=== PATIENT | female | born 1970 | race American Indian/Alaskan Native ===

== ENCOUNTER 2018-10-16 06:24 | Day surgery (SDC) | payer BC ==
--- NOTE | 2018-10-16 07:36 | Anesthesia Consultation ---
Anesthesia Consult and Med Hx Date of service: 10/16/18 - Airway Anesthetic Teeth Evaluation: Good ROM Head & Neck: Adequate Mental/Hyoid Distance: Adequate Mallampati Class: Class III - Pre-Operative Health Status ASA Pre-Surgery Classification: ASA3 Proposed Anesthetic Plan: MAC - Cardiovascular System Hx Hypertension: Yes - Central Nervous System Hx Psychiatric Problems: Yes (depression/anxiety) - Endocrine Hx Insulin Dependent Diabetes: Yes - Hematic Hx Anemia: Yes - Other Systems Hx Obesity: Yes (Morbid obesity, BMI 42.4) - Additional Comments Anesthesia Medical History Comments: S/p gastric bypass (2008)
--- NOTE | 2018-10-16 07:36 | Anesthesia Day of Surgery ---
Anesthesia Day of Surgery - Day of Surgery Patient Examined: Yes Patient H&P Reviewed: Yes Patient is NPO: Yes Beta Blockers: Yes
[2018-10-16] MEDS ORDERED: WATER FOR IRRIG STERILE IR ONE (07:44)
[2018-10-16] MEDS ORDERED: WATER FOR IRRIG STERILE ONE (07:44)
[2018-10-16] MEDS ORDERED: NACL 0.9% 1000 ML 1,000 ML IV SCH (08:00)
[2018-10-16] MEDS ORDERED: VERSED ONE (09:21)
[2018-10-16] MEDS ORDERED: XYLOCAINE 1% 20 mL ONE (09:21)
[2018-10-16] MEDS ORDERED: DIPRIVAN 10 MG/ML IV ONE (09:21)
[2018-10-16] MEDS ORDERED: D50W (25GM) Syringe IV ONE (09:33)
--- NOTE | 2018-10-16 10:11 | Procedure Note ---
Date of procedure: 10/16/18 Pre-op diagnosis: Diarrhea/ Colitis Post-op diagnosis: other (R/O Microscopic Colitis/ R/O Ileitis/ Solitary,small Rectal Polyp/ Minor, Internal Hemorhoid/ Prep was fair to poor) Procedure: Colonoscopy with Biopsy Anesthesia: MAC Surgeon: STANTON CASTANO Estimated blood loss: minimal Pathology: list Specimen disposition: to lab Condition: stable Disposition: same day (Avoid aspirin and NSAID for 4 to 5 days. Treat prn Imodium AD (OTC) as needed for diarrhea and an empiric course of Flagyl)
[2018-10-16 10:28] VITALS: BP 149/80
--- NOTE | 2018-10-16 12:47 | Operative Report ---
PROCEDURE: Colonoscopy. INDICATIONS: This is a 48-year-old -[place] female with a history of obesity, underlying history of diabetes mellitus type 2, hypertension, and family history of colon cancer. The patient lately has been having abdominal pain with changes in bowel habit and diarrhea. Colonoscopy was done to assess for any associated colitis. DESCRIPTION OF PROCEDURE: Procedure was done after getting informed consent with MAC anesthesia. Initial rectal exam was unremarkable. Instrument was passed through the rectum onto the cecum, which was identified with ileocecal valve and the appendiceal orifice. Visualization was fair to slightly poor. The mucosa was washed with copious amounts of water. The terminal ileum was intubated showed normal mucosa. Biopsy was done to rule out for possible ileitis. Cecum, ascending colon, transverse colon, descending colon, and sigmoid likewise showed normal mucosa. Random biopsies were done to rule out for possible microscopic colitis and the rectum showed small 8 mm ____ polyp that was removed by cold biopsy. There was minimal bleeding from the biopsy sites and the rectum showed some minor internal hemorrhoids on the retroverted view. There were no complications associated with the procedure. Minimal bleeding associated with the procedure. ASSESSMENT: Changes in bowel habits, diarrhea, rule out microscopic colitis, rule out ileitis, solitary small rectal polyp removed by cold biopsy, minor internal hemorrhoids. PLAN: To treat the patient empirically with Flagyl, Lomotil on a p.r.n. basis and probiotics. The patient avoid aspirin and aspirin-related products for the next few days and follow up in the office in 1-2 weeks' time and Sloane Carnes was in the room throughout the entirety of the procedure. JOB# [id number] ENMANUEL/ERWIN
== END 2018-10-16 11:20 | disposition home or self-care (01) ==
LOC: GIO 06:24
DX: K63.5 Polyp of colon (principal); K64.8 Other hemorrhoids; R19.7 Diarrhea, unspecified; I10 Essential (primary) hypertension; E11.42 Type 2 diabetes mellitus with diabetic polyneuropathy; D64.9 Anemia, unspecified; E66.01 Morbid (severe) obesity due to excess calories; Z68.41 Body mass index [BMI] 40.0-44.9, adult; Z79.899 Other long term (current) drug therapy; Z79.4 Long term (current) use of insulin; Z98.84 Bariatric surgery status; Z80.0 Family history of malignant neoplasm of digestive organs
CPT/HCPCS: 45380; 81025; 82962; 88305; J2250; J2704; J7030

== ENCOUNTER 2020-07-14 06:31 | Day surgery (SDC) | payer BC ==
[2020-07-14] MEDS ORDERED: SODIUM CHLORIDE 0.9% 1000 ML 1,000 ML IV SCH (07:00)
[2020-07-14] MEDS ORDERED: WATER FOR IRRIG STERILE 250 ML BOTTLE IR ONE (07:39)
[2020-07-14] MEDS ORDERED: propofoL 200 MG/20 ML VIAL IV ONE (09:37)
--- NOTE | 2020-07-14 10:01 | Procedure Note ---
Date of procedure: 07/14/20 Pre-op diagnosis: GERD and possible Peptic Ulcer disease Post-op diagnosis: other (S/P Gastric Bypass (Bilroth 2)/ No Peptic,Ulcer Disease noted/Gastritis/Mild to Moderate Erosive Esophagitis/R/O Celiac disease/ R/O Eosinophilic Esophagitis) Procedure: EGD with Biopsy Anesthesia: [facility] [place] Surgeon: STANTON CASTANO Estimated blood loss: minimal Pathology: list Specimen disposition: to lab Condition: stable Disposition: same day (Treat with PPI and Reglan. Avoid aspirin and NSAIID for 5 days; otherwise resume home medication and follow up in 1 to 2 weeks ([phone]).)
--- NOTE | 2020-07-14 10:12 | Operative Report ---
PROCEDURE: Esophagogastroduodenoscopy with biopsy. INDICATIONS: This is a 50-year-old -[place] female who is obese, has an underlying history of diabetes mellitus who has been complaining of GERD symptoms and possible peptic ulcer disease. EGD was done for further assessment of her symptoms. DESCRIPTION OF PROCEDURE: The procedure was done after getting informed consent with MAC anesthesia. Instrument was passed through the hypopharynx into the esophagus, which showed [id number] erosive esophagitis. Photo documentation and biopsy was done from the distal esophagus, as well as from the midesophagus. The stomach showed some gastritis. There was status post gastric bypass. It looked like the patient had Billroth II. The biopsy was done from the remnant of the gastric portion for H. pylori and atrophic gastritis. Biopsy was done from the efferent limb to rule out for possible celiac disease. There was minimal bleeding associated with the procedure. No complications associated with the procedure. ASSESSMENT: Gastroesophageal reflux disease symptoms, [id number] erosive esophagitis, gastritis, status post gastric bypass with a Billroth II, rule out celiac disease. PLAN: To treat the patient with PPI, p.r.n. dose of Reglan. Have the patient avoid aspirin and aspirin-related products for the next few days and follow up in the office in 1-2 weeks' time. Procedure was done in the GI lab with the assistance of the GI lab team, which included catarina Dial and with the assistance of anesthesia. JOB# [id number] ENMANUEL/ERWIN
[2020-07-14 10:36] VITALS: BP 150/75
--- NOTE | 2020-07-14 13:31 | Anesthesia Consultation ---
Anesthesia Consult and Med Hx Date of service: 07/14/20 - Airway Anesthetic Teeth Evaluation: Good ROM Head & Neck: Adequate Mental/Hyoid Distance: Adequate - Pulmonary Exam CTA: Yes - Cardiac Exam Cardiac Exam: RRR - Pre-Operative Health Status ASA Pre-Surgery Classification: ASA2 Proposed Anesthetic Plan: MAC - Cardiovascular System Hx Hypertension: Yes - Central Nervous System Hx Psychiatric Problems: Yes (depression/anxiety) - Endocrine Hx Insulin Dependent Diabetes: Yes - Hematic Hx Anemia: Yes - Other Systems Hx Obesity: Yes (Morbid obesity, BMI 42.4)
--- NOTE | 2020-07-14 13:32 | Post Anesthesia Evaluation ---
- Post Anesthesia Evaluation Patient Participated: Yes Airway Patent: Yes Stable Respiratory Function: Yes Nausea/Vomiting: No Temp > 96.8F: Yes Pain Manageable: Yes Adequeate Hydration: Yes Anesthesia Complications: No Block Receding Appropriately: Not Applicable Patient on Ventilator: No
--- NOTE | 2020-07-14 13:32 | Anesthesia Day of Surgery ---
Anesthesia Day of Surgery - Day of Surgery Patient Examined: Yes Patient H&P Reviewed: Yes Patient is NPO: Yes
== END 2020-07-14 11:00 | disposition home or self-care (01) ==
LOC: GIO 06:31
DX: K21.0 Gastro-esophageal reflux disease with esophagitis (principal); K29.70 Gastritis, unspecified, without bleeding; E11.42 Type 2 diabetes mellitus with diabetic polyneuropathy; G62.9 Polyneuropathy, unspecified; K31.89 Other diseases of stomach and duodenum; D64.9 Anemia, unspecified; E66.01 Morbid (severe) obesity due to excess calories; F32.9 Major depressive disorder, single episode, unspecified; F41.9 Anxiety disorder, unspecified; Z79.4 Long term (current) use of insulin; Z79.899 Other long term (current) drug therapy; Z98.890 Other specified postprocedural states; Z68.41 Body mass index [BMI] 40.0-44.9, adult; Z88.8 Allergy status to other drugs, medicaments and biological substances
CPT/HCPCS: 43239; 82962; 88305; 88342; J2704; J7030